=== PATIENT | female | born 1955 | race Caucasian/White ===

== ENCOUNTER 2019-08-05 10:55 | Day surgery (SDC) | payer OTHER ==
[2019-08-03 15:36] VITALS: BMI 29.0
[2019-08-05 14:26] VITALS: TEMP 98
[2019-08-05 14:31] VITALS: BP 125/57; PULSE 68
--- NOTE | 2019-08-09 15:01 | PATH ---
Surgical Pathology Report Patient Name: JENNIF[facility]. Rec. #: [id number] /Age/Gender: 1955 (Age: 63) / F Account: [id number] Location: [facility] Taken: 08/05/2019 Received: 08/05/2019 Reported: 08/09/2019 Physicians: Gayle Rick M.D. Specimen(s) Received A: SECOND PORTION DUODENUM B: ANTRUM C: GE JUNCTION Clinical History Abdominal pain Postoperative diagnosis: Gastritis Final Diagnosis A. DUODENUM, SECOND PORTION, BIOPSY: DUODENAL MUCOSA WITH NO PATHOLOGIC CHANGES. NO HISTOLOGIC EVIDENCE OF GLUTEN SENSITIVE ENTEROPATHY (CELIAC SPRUE) IDENTIFIED. B. STOMACH, ANTRUM, BIOPSY: MILD TO MODERATE CHRONIC GASTRITIS. IMMUNOSTAIN FOR H. PYLORI IS NEGATIVE. C. GE JUNCTION, BIOPSY: SQUAMOUS AND GASTRIC MUCOSA WITH ACUTE AND CHRONIC INFLAMMATION AND PAPILLOMATOSIS SUGGESTIVE OF REFLUX ESOPHAGITIS. NO INTESTINAL METAPLASIA IDENTIFIED (NO LARKIN'S IDENTIFIED). Electronically Signed Jm Duque M.D. Gross Description A. Received in formalin, labeled "biopsy second portion of duodenum" are 2 mccormack, irregular portions of soft tissue measuring 0.3 and 0.6 cm. in greatest dimension. The specimens are submitted in toto in one cassette. B. Received in formalin, labeled "biopsy gastric antrum" is a mccormack, irregular portion of soft tissue measuring 0.5 cm. in greatest dimension. The specimen is submitted in toto in one cassette. C. Received in formalin, labeled "biopsy GE junction" is a mccormack, irregular portion of soft tissue measuring 0.5 cm. in greatest dimension. The specimen is submitted in toto in one cassette. 08/08/2019 saudi08/08/2019
== END 2019-08-05 13:45 | disposition home or self-care (01) ==
LOC: FASU-ENDO 10:55
PROVIDERS: ATTEND Internal Medicine Gastroenterology
PROC: 0DB68ZX Excision of Stomach, Via Natural or Artificial Opening Endoscopic, Diagnostic (ICD-10-PCS; 2019-08-05)
PROC: 0DB48ZX Excision of Esophagogastric Junction, Via Natural or Artificial Opening Endoscopic, Diagnostic (ICD-10-PCS; 2019-08-05)
PROC: 0DB98ZX Excision of Duodenum, Via Natural or Artificial Opening Endoscopic, Diagnostic (ICD-10-PCS; principal; 2019-08-05 12:16)
DX: K29.50 Unspecified chronic gastritis without bleeding (principal); K31.9 Disease of stomach and duodenum, unspecified; K22.9 Disease of esophagus, unspecified; R10.13 Epigastric pain
CPT/HCPCS: 88305-TC; 88342-TC